=== PATIENT | male | born 1995 | race Caucasian/White ===

== ENCOUNTER 2017-07-10 02:57 | Emergency (ER) | payer SELFPAY ==
[~2017-07-10] VITALS: Ht 177.8 cm; Wt 72.6 kg
[2017-07-10 03:05] VITALS: BP 123/76
--- NOTE | 2017-07-10 05:24 | NUR ---
PATIENT CALLED IN WAITING ROOM, NO ANSWER.
== END 2017-07-10 05:26 | disposition left against medical advice (07) ==
LOC: ER 03:01
DX: R10.9 Unspecified abdominal pain (principal); Z53.21 Procedure and treatment not carried out due to patient leaving prior to being seen by health care provider
CPT/HCPCS: A4606; Z7610